=== PATIENT | female | born 1955 | race American Indian/Alaskan Native ===

== ENCOUNTER 2017-01-23 15:30 | Outpatient (CLI) | payer OTHER ==
--- NOTE | 2017-01-24 11:44 | Mammography Report ---
BILATERAL DIGITAL SCREENING MAMMOGRAM with CAD: 01/23/17 15:30:00 CLINICAL: Routine screening. COMPARISON:01/17/15 FINDINGS: The breasts are heterogeneously dense, which may obscure small masses. No mass, architectural distortion or suspicious calcifications. IMPRESSION: No mammographic evidence of malignancy. BI-RADS CATEGORY: 1 - - Negative RECOMMENDATION: Routine mammographic screening in one year. COMMENT: Patient follow-up letters are generated by our [employer] application.
== END 2017-01-23 15:31 | disposition home or self-care (01) ==
LOC: SPVWC 15:30
PROVIDERS: ATTEND Internal Medicine
DX: Z12.31 Encounter for screening mammogram for malignant neoplasm of breast (principal)
CPT/HCPCS: 77067; G0202

== ENCOUNTER 2018-02-06 10:04 | Outpatient (CLI) | payer BC ==
--- NOTE | 2018-02-06 13:15 | Mammography Report ---
BILATERAL DIGITAL SCREENING MAMMOGRAM with CAD: 02/06/18 10:04:00 CLINICAL: Routine screening. COMPARISON:01/23/17 FINDINGS: The breasts are heterogeneously dense, which may obscure small masses.Left asymmetry and architectural distortion requires additional imaging. No suspicious calcifications. The right breast is negative. IMPRESSION: Left asymmetry and architectural distortion requiring additional imaging. BI-RADS CATEGORY: 0--Needs Additional Imaging RECOMMENDATION: Recall for left lateralmedial and spot magnification MLO and CC views and left breast ultrasound needed. COMMENT: Patient follow-up letters are generated by our [employer] application.
== END 2018-02-06 10:05 | disposition home or self-care (01) ==
LOC: SPVWC 10:04
PROVIDERS: ATTEND Internal Medicine
DX: Z12.31 Encounter for screening mammogram for malignant neoplasm of breast (principal)
CPT/HCPCS: 77067

== ENCOUNTER 2018-02-20 08:14 | Outpatient (CLI) | payer BC, OTHER ==
--- NOTE | 2018-02-20 08:55 | Mammography Report ---
LEFT DIGITAL DIAGNOSTIC MAMMOGRAM : 02/20/18 08:14:00 CLINICAL: Recall for asymmetries and architectural distortion. COMPARISON:02/06/18 screening FINDINGS: Additional mammographic views were performed and are negative.Spot magnification views demonstrate satisfactory effacement of asymmetry and architectural distortion. IMPRESSION: No mammographic evidence of malignancy. BI-RADS CATEGORY: 1 -- Negative RECOMMENDATION: Routine mammographic screening in one year. ACR BI-RADS MAMMOGRAPHIC CODES: 0 = Needs additional imaging evaluation; 1 = Negative; 2 = Benign; 3 = Probably benign; 4 = Suspicious; 5 = Malignant; 6 = Known biopsy-proven malignancy COMMENT: 1. Dense breast tissue, i.e., adenosis, fibrocystic changes, etc., may obscure an underlying neoplasm. 2. Approximately 10% of cancers are not detected with mammography. 3. A negative mammography report should not delay biopsy if a clinically suspicious mass is present. COMMENT: Patient follow-up letters are generated via our [employer] application.
== END 2018-02-20 08:15 | disposition home or self-care (01) ==
LOC: SPVWC 08:14
PROVIDERS: ATTEND Internal Medicine
DX: R92.8 Other abnormal and inconclusive findings on diagnostic imaging of breast (principal)

== ENCOUNTER 2019-04-28 10:29 | Day surgery (SDC) | payer OTHER ==
[~2019-04-28 10:29] MED LIST: SODIUM CHLORIDE 0.9% 1000 ML 1,000 ML IV SCH
--- NOTE | 2019-04-28 11:40 | Anesthesia Day of Surgery ---
Anesthesia Day of Surgery - Day of Surgery Patient Examined: Yes Patient H&P Reviewed: Yes Patient is NPO: Yes Beta Blockers: No
--- NOTE | 2019-04-28 11:40 | Anesthesia Consultation ---
Anesthesia Consult and Med Hx Date of service: 04/28/19 - Airway Anesthetic Teeth Evaluation: Good ROM Head & Neck: Adequate Mental/Hyoid Distance: Adequate Mallampati Class: Class II Intubation Access Assessment: Probably Good - Pre-Operative Health Status ASA Pre-Surgery Classification: ASA3 Proposed Anesthetic Plan: MAC - Pulmonary Hx Smoking: No Hx Asthma: No Hx Respiratory Symptoms: No SOB: No COPD: No Home Oxygen Therapy: No Hx Pneumonia: No Hx Sleep Apnea: Yes - Cardiovascular System Hx Hypertension: Yes Hx Coronary Artery Disease: No Hx Heart Attack/AMI: No Hx Angina: No Hx Percutaneous Transluminal Coronary Angioplasty (PTCA): No Hx Cardia Arrhythmia: No Hx Pacemaker: No Hx Internal Defibrillator: No Hx Valvular Heart Disease: No Hx Heart Murmur: No Hx Peripheral Vascular Disease: No - Central Nervous System Hx Neuromuscular Disorder: No Hx Seizures: No CVA: No Hx Back Pain: No Hx Psychiatric Problems: No - Gastrointestinal Hx Ulcer: No Hx Gastroesophageal Reflux Disease: Yes - Endocrine Hx Renal Disease: No Hx End Stage Renal Disease: No Hx Cirrhosis: No Hx Liver Disease: No Hx Insulin Dependent Diabetes: No Hx Non-Insulin Dependent Diabetes: Yes Hx Thyroid Disease: No Hx Hypothyroidism: No Hx Hyperthyroidism: No - Hematic Hx Anemia: No Hx Sickle Cell Disease: No - Other Systems Hx Alcohol Use: Yes (occ.) Hx Substance Use: No Hx Cancer: No Hx Obesity: No
[2019-04-28] MEDS ORDERED: propofoL 200 MG/20 ML VIAL IV ONE ×3 (12:08→12:50)
--- NOTE | 2019-04-28 13:24 | Procedure Note ---
Date of procedure: 04/28/19 Pre-op diagnosis: Dysphagia/ H/O Colon Polyps Post-op diagnosis: other (Mild,Samantha Esophagitis/ Mild,Benign Esophageal Stenosis/ Gastritis/Small,Descending colon Polyps (possibly Hyperplastic)/Moderate, Left colon Diverticular Disease/ Minor,Internal Hemorrhoid) Procedure: EGD with Biopsy and Esophageal Balloon dilation (20 mm Balloon)/ Colonoscopy with cold Biopsy Anesthesia: MAC Surgeon: CARSON GARNER Estimated blood loss: minimal Pathology: list Specimen disposition: to lab Condition: stable Disposition: same day (Treat with PPI and Fluconazole. Encourage fiber intake and resume home medication but avoid aspirin and NSAID for 4 days. Follow up in 1 to 2 weeks ([phone]).)
--- NOTE | 2019-04-28 13:27 | Operative Report ---
PROCEDURE: Colonoscopy with biopsy. INDICATIONS: This is a 63-year-old -[place] female who has a prior history of colon polyps. She had an EGD done prior to the colonoscopy, which showed possibly some mild Samantha esophagitis and mild benign esophageal stenosis for which she had dilation done as well as gastritis. There was no peptic ulcer disease noted and she had a patent pylorus. PROCEDURE: Colonoscopy was done after getting informed consent with MAC anesthesia. Initial rectal exam was unremarkable. Instrument was passed through the rectum onto the cecum, which was identified with ileocecal valve and the appendiceal orifice. The cecum was also viewed on the retroverted view. No additional pathology was noted. Visualization was fair to good. Cecum, ascending colon showed normal mucosa. In the distal transverse colon and the descending colon, there was moderate diverticular disease noted. In the descending colon, there were 3 small polyps about 8-9 mm in diameter, possibly hyperplastic that were removed by cold biopsy with minimal bleeding The sigmoid appeared normal and the rectum showed minor internal hemorrhoid on the retroverted view. ASSESSMENT: History of colon polyps. Three small descending colon polyps noted, possibly hyperplastic, removed by cold biopsy. Moderate left colon diverticular disease and minor internal hemorrhoid. The patient will be encouraged to take fiber supplements, avoid aspirin and aspirin-related products for the next few days, treated with PPI and fluconazole because of the EGD findings of gastritis, esophagitis and possible candidal esophagitis. The patient will be asked to resume home medication, but avoid aspirin and aspirin type products for the next 5 days and follow up in the office in 1-2 weeks' time. The procedure was done in the GI lab with assistance of the GI lab team, which included librado Lund and with assistance of anesthesia. JOB# [id number] NIKA/MATY
[2019-04-28 13:30] VITALS: BP 124/85
--- NOTE | 2019-04-28 13:30 | Operative Report ---
PROCEDURE: Esophagogastroduodenoscopy with biopsy and status post balloon dilation with a 20 mm balloon. INDICATIONS: This is a 63-year-old -[place] female who has lately been having dysphagia. She has had dysphagia before, for which she has had EGD with dilation done. DESCRIPTION OF PROCEDURE: Procedure was done after getting informed consent with MAC anesthesia. Instrument was passed through the hypopharynx into the esophagus, which did show a mild benign esophageal stenosis. This was dilated at the end of the procedure with a 20 mm balloon that was maintained for a minute. There was some mild whitish plaques suggestive of mild Samantha esophagitis. Photodocumentation and biopsy was also done. The stomach showed gastritis, but no ulcers noted in the straight of the retroverted view. Biopsy was done from the gastric antrum, gastric body and angularis incisura to rule out for H. pylori and atrophic gastritis. The pylorus was patent. The duodenum in the first and the second portion appeared normal. There was minimal bleeding from the biopsy sites and no complications associated with the procedure. ASSESSMENT: Dysphagia, mild Samantha esophagitis, mild benign esophageal stenosis, gastritis and patent pylorus. PLAN: To treat the patient with PPI. Give the patient a course of fluconazole for possible Samantha esophagitis, have the patient to avoid aspirin and aspirin-related products for the next 4-5 days. Colonoscopy will be done because of the patient's prior history of colon polyps. The patient will be asked to resume home medication, but to avoid aspirin and aspirin-related products for 5 days and follow up in the office in 1-2 weeks' time. Procedure was done in the GI lab with assistance of the GI lab team, which included Silvia MATHIS; Andrey pavon as well as with assistance of anesthesia. JOB# [id number] NIKA/MATY
[2019-04-28] MEDS ORDERED: LIDOCAINE MPF (2%) 20 MG/1 ML VIAL 5 ML ONE (14:00)
--- NOTE | 2019-04-28 14:40 | Post Anesthesia Evaluation ---
- Post Anesthesia Evaluation Patient Participated: Yes Airway Patent: Yes Stable Respiratory Function: Yes Nausea/Vomiting: No Temp > 96.8F: Yes Pain Manageable: Yes Adequeate Hydration: Yes Anesthesia Complications: No
== END 2019-04-28 10:30 | disposition home or self-care (01) ==
LOC: GIO 10:29
DX: Z12.11 Encounter for screening for malignant neoplasm of colon (principal); K29.50 Unspecified chronic gastritis without bleeding; D12.4 Benign neoplasm of descending colon; R13.10 Dysphagia, unspecified; K22.2 Esophageal obstruction; K29.70 Gastritis, unspecified, without bleeding; K57.30 Diverticulosis of large intestine without perforation or abscess without bleeding; K64.8 Other hemorrhoids; I10 Essential (primary) hypertension; G47.30 Sleep apnea, unspecified; K21.0 Gastro-esophageal reflux disease with esophagitis; E11.9 Type 2 diabetes mellitus without complications; Z86.010 Personal history of colon polyps; Z79.84 Long term (current) use of oral hypoglycemic drugs; Z79.899 Other long term (current) drug therapy; Z72.89 Other problems related to lifestyle; Z80.8 Family history of malignant neoplasm of other organs or systems; Z80.3 Family history of malignant neoplasm of breast
CPT/HCPCS: 43239; 43249; 45380; 82962; 88305; 88312; 88342; C1726; J2704; J7030

== ENCOUNTER 2019-05-14 10:29 | Outpatient (CLI) | payer OTHER | END 2019-05-14 10:30 | disposition home or self-care (01) | LOC: SPVWC 10:29 | PROVIDERS: ATTEND Internal Medicine | DX: Z12.31 Encounter for screening mammogram for malignant neoplasm of breast (principal) | CPT/HCPCS: 77067 ==